=== PATIENT | male | born 1955 | race Asian ===

== ENCOUNTER 2019-06-11 07:53 | Day surgery (SDC) | payer OTHER ==
[2019-06-08 15:27] VITALS: BMI 29.0
[2019-06-11 11:10] VITALS: BP 125/72; PULSE 78; TEMP 98.2
== END 2019-06-11 09:45 | disposition home or self-care (01) ==
LOC: JASU-ENDO 07:53
PROVIDERS: ATTEND Internal Medicine Gastroenterology
PROC: 0DJD8ZZ Inspection of Lower Intestinal Tract, Via Natural or Artificial Opening Endoscopic (ICD-10-PCS; principal; 2019-06-11 08:30)
DX: Z12.11 Encounter for screening for malignant neoplasm of colon (principal); K64.8 Other hemorrhoids

== ENCOUNTER 2021-08-10 19:47 | Emergency (ER) | payer OTHER ==
[2021-08-10 20:03] VITALS: BP 137/83; PULSE 88; TEMP 98.8; BMI 27.3
== END 2021-08-10 21:59 | disposition home or self-care (01) ==
LOC: FER 19:47
DX: R22.41 Localized swelling, mass and lump, right lower limb (principal)
CPT/HCPCS: 93971-TC; 99284-25